=== PATIENT | male | born 1980 | race Caucasian/White ===

== ENCOUNTER 2016-06-12 21:43 | Emergency (ER) | payer MEDICARE, MEDICAID ==
[~2016-06-12] VITALS: Ht 182.9 cm; Wt 84.0 kg
[~2016-06-12 21:43] MED LIST: ARIP5TAB20 PO; BENZ0.5T3 PO; DIVA250T12 PO; FLUO20CA25 PO; IBUP200C PO; OLAN20TA16 PO; OXYC1TAB24 PO; PERP2TAB5 PO; RIZA10TA28 SL
[2016-06-12 22:06] VITALS: BP 130/73; PULSE 101; RESP 16; O2SAT 99
[2016-06-12 22:10] VITALS: BP 139/77; PULSE 111; RESP 18; O2SAT 99
--- NOTE | 2016-06-12 22:40 | ED.REPORT ---
HPI-Psychiatric Illness Date of Service Jun 12, 2016 ED Provider: Mehul Bernstein MD Patient is a 35 year old male with a history of schizophrenia with paranoid delusions, bipolar disorder, PTSD, and multiple previous psychiatric admissions with prior unintentional drug overdose who presents to the ED via [facility] after his called 911 reporting that the patient experiencing auditory hallucinations, paranoid delusions, and that he was threatening to commit suicide. His provided an affidavit, reporting that the patient has been hearing voices for the past few weeks, making it hard for him to focus. The patient has become increasingly anxious, with his medications recently adjusted by his provider. Mayra patient admitted to her that he wanted to make the voices stop. He stated that he took more of his [facility] than usual. The patient wanted to go to the ED to be admitted to the hospital. However, when she took out her cellphone to call a magnetic tester the patient believed that she received a text message from a man she was cheating on him with. The patient then became very agitated and his called [facility] for their safely. On arrival to the ED the patient denies being suicidal, delusional, or hearing voices. Patient states that he received a text message that his was cheating on him and he wanted to take a walk after they got into an argument. The patient was planning to go to the gym and work out until he settled down. The patient states that he is not suicidal or homicidal and that he plans to stay safe in the ED. The patient reports taking his medications as prescribed and that he sees his psychiatrist regularly. However his reports that the patient was suicidal and that he ran away from the house when she tried to take him to the ED. She therefore called [facility]. Patient was seen in the ED multiple times in the month of April in relation to an ongoing delusion that his is cheating on him, with similar circumstances as to how he presented to the ED mayra. He was ultimately not admitted for psychiatric services, as the patient always denied being suicidal and agreed to stay safe. Patient now admits that he was in a schizophrenic episode last time he was seen in the ED, but he is not currently in a schizophrenic episode. He states that his uses his schizophrenia against him. He plans to divorce his and requests that she is not given any information about his medical care. Patient states that he does not want to be in the ED but he agrees to cooperate with evaluation. Patient denies having any other medical complaints at this time. Mental Health Provider: Ana Cristina WEBB, [facility] Nursing Notes Stated Complaint: SUICIDAL STATEMENTS Chief Complaint: Psychiatric Complaint Nursing Notes Reviewed: Yes Allergies: Coded Allergies: No Known Allergies (Verified Allergy, Unknown, 11/17/15) Scheduled Aripiprazole (Aripiprazole) 5 Mg Tablet 10 MG PO MORNING Divalproex ER (Divalproex ER) 250 Mg Tab.er.24h 500 MG PO BID Fluoxetine (Fluoxetine) 20 Mg Capsule 20 MG PO QAM Olanzapine (Olanzapine) 20 Mg Tablet 20 MG PO HS Perphenazine (Perphenazine) 2 Mg Tablet 6 MG PO QAM oxyCODONE-Acetaminophen 5-325 mg (oxyCODONE-Acetaminophen 5-325 mg) 1 Each Tablet 1 TAB PO TID Scheduled PRN Benztropine Mesylate (Benztropine Mesylate) 0.5 Mg Tablet 0.5 MG PO BID PRN PRN tremors Ibuprofen (Ibuprofen) 200 Mg Capsule 400 MG PO QID PRN PRN For Pain Rizatriptan ODT (Rizatriptan) 10 Mg Tablet 10 MG SL DAILY PRN PRN For Headache General Time Seen by MD: 22:37 Chief Complaint Bizarre behavior, Suicidal ideation Hx Obtained From: Patient, Spouse, Other family..., Police Arrived By: Police, Walk-in Onset Occurred: 1 - 4 hours ago Symptom Duration: Since onset Recent Healthcare: No recent doctor visit, No recent hospitalization Similar Sx Previous: Yes Risk-Psychiatric Illness Suicide Risk Stratification Suicide Risk Factors - Adult: : Previous attempt: Prior psych admissionNo: Alcohol use, Substance abuse RF Statements: Risk factors reviewed Past Medical History Past Medical History Schizophrenia Bipolar disorder PTSD history of unintentional drug overdose Cluster migraine Chronic neck pain Reports: Hyperlipidemia Past Surgical History Cervical fusion Undescended testicle repair as a child Family History [place] (Mother in her 40s) Smoking History Current Every Day Smoker Social History Lives with and children Alcohol Use: Denies alcohol use Drug Use: Meth Other Social History: Good social support, , Local resident Occupation [employer] Status Independent Review of Systems Constitutional: Denies: Chills, Fever Psychiatric: Reports: Delusional, Denies: Hallucinations, auditory, Homicidal ideation, Suicidal ideation Complete sys rev & neg: except as marked. Physical Exam Physical Exam Notes: Initial Vital Signs Vital Signs (First) Date Time Temp Pulse Resp B/P Pulse Ox O2 Delivery O2 Flow Rate FiO2 06/12/16 22:06 37.2 101 16 130/73 99 Room Air Initial VS: Reviewed, Vital signs normal Head / Eyes: Atraumatic, Normocephalic, PERRL ENT: Conjunctiva normal, No scleral icterus Neck: Supple, Full range of motion Respiratory: Breath sounds normal, Clear to auscultation, No respiratory distress Cardiovascular: Regular rate & rhythm, Heart sounds normal Abdomen / GI: Soft, Non-tender Extremities: Vascular intact, Neuro intact Skin: Warm, Dry, No cyanosis General/Constitutional: Awake, Alert, No acute distress healthy and fit appearing Neurologic: Oriented X3, Speech NL, No motor deficits, No sensory deficits Psychiatric: Not suicidal (denies), Not homicidal (denies), No hallucinations ( denies) Abnormal Mood/Affect: Positive: Pressured speech denies all schizophrenic symptoms period. Interpretation & Diagnostics Interpretation & Diagnostics: Breathalyzer: 0.00 Urine Tox Screen: Positive for THC, all else negative Lab Results Interpretation Result Diagram: 06/12/16 2322 06/12/16 2322 Test 06/12/16 22:44 06/12/16 23:15 06/12/16 23:22 Hold Urine Received (Received) Hold Castle Top Tube Received (Received) White Blood Count 14.5th/mm3 (3.8-10.1) Red Blood Count 5.25mil/mm3 (4.40-5.80) Hemoglobin 15.6g/dL (13.8-17.2) Hematocrit 46.2% (41.0-50.0) Mean Corpuscular Volume 88.0fL (81-100) Mean Corpuscular Hemoglobin 29.7pg (27.0-35.0) Mean Corpuscular Hemoglobin Concent 33.8% (32.0-37.0) Red Cell Distribution Width 14.8% (12.3-15.4) Platelet Count 269bil/L (150-400) Neutrophils (%) (Auto) 64.1% (40-74) Lymphocytes (%) (Auto) 28.1% (14-46) Monocytes (%) (Auto) 6.9% (4-12) Eosinophils (%) (Auto) 0.2% (0-5) Basophils (%) (Auto) 0.4% (0-3) Sodium Level 139mEq/L (134-144) Potassium Level 3.6mEq/L (3.5-5.2) Chloride Level 100mEq/L (97-108) Carbon Dioxide Level 25mmol/L (18-29) Blood Urea Nitrogen 7mg/dL (6-20) Creatinine 0.88mg/dL (0.76-1.27) Estimat Glomerular Filtration Rate 106mL/min (>59) Glucose Level 114mg/dL (60-99) Calcium Level 8.9mg/dL (8.5-10.1) Total Bilirubin 0.3mg/dL (0.0-1.2) Aspartate Amino Transf (AST/SGOT) 16U/L (0-50) Alanine Aminotransferase (ALT/SGPT) 12U/L (0-44) Alkaline Phosphatase 37U/L (25-150) Total Protein 7.4g/dL (6.4-8.4) Albumin 4.3g/dL (3.4-5.0) Thyroid Stimulating Hormone (TSH) 2.560uIU/mL (0.450-4.500) Lab Results Interpretation: Elevated white blood count, likely stress related Re-Eval/Medical Decision Med Decision/Clinical Course 35-year-old male with a history of schizophrenia presents with an acute exacerbation. He was identified by his is having more hallucinations and more problems, and initially she states he agreed to come in voluntarily but then ran when the final arrangements were being made. She called the police and they brought him here. He has ongoing paranoid delusions about their relationship. He denies being suicidal or homicidal. He was evaluated by Andrew , ELBA., Please see his "briefing of intervention." He is being discharged home with his . Several follow-up arrangements are being made through [facility]. He will return if he has further problems. Source of Hx: Old records Re-Evaluation/Progress #1: Time of Eval: 23:49 Re-Evaluation/Progress Note: Informed the patient of the plan for DCR evaluation. Patient understands and agrees with this plan. All questions were addressed. Re-Evaluation/Progress #2: Time of Eval: 03:45 Patient Status: Condition improved Re-Evaluation/Progress Note: Patient understands and agrees with the plan to be discharged home. Discharge instructions and follow-up as arranged by DCR discussed. All questions were addressed. Return to the ED warnings given. Consultation #1: Call Returned at: 23:36 Note: Spoke with the [facility] for dispatch of the DCR. They agree to dispatch the DCR. Consultation #2: Call Returned at: 01:12 Grommet Machine Operator: Will see patient Note: DCR is present in the ED. He will evaluate the patient shortly. Consultation #3: Call Returned at: 03:39 Note: Spoke with the DCR, Andrew, who has evaluated the patient. He was given permission to speak to his , mental health provider, and set up follow-up with SHANNAN. He will have close outpatient follow-up. Patient would like to go home at that time and his is willing to take him home. Discussed with the patient when he needs to realize what is reality and what is due to his schizophrenia. Counseled Regarding: Diagnosis, Lab results, Need for follow-up, When/why to return to ED Discharge & Departure Impression: Primary Impression: Schizophrenia Schizophrenia type: paranoid schizophrenia Qualified Code: F20.0 - Paranoid schizophrenia )( Condition at Discharge: No danger to self, No danger to others, No suicidal ideation, No homicidal ideation Disposition: Home Discharge Condition All VS Reviewed: Yes Condition: Stable Patient Instructions: Schizophrenia (ED) Additional Instructions: Continue your present counseling efforts. Keep taking your medicines as prescribed. Referrals: Senthil Horton DO (PCP) Joaquina Attestation Portions of this note were transcribed by Cindy Manuel. I, Dr. Bernstein personally performed the history, physical exam and medical decision-making; I reviewed and confirmed the accuracy of the information in the transcribed note. Signed by: Joaquina Roldna, 06/12/2016 0522 copies to: Senthil Horton Howard L MD Jun 12, 2016 22:40 Cindy Manuel Jun 12, 2016 22:47
[2016-06-12 23:26] LABS: BASOPHILS % (AUTO) 0.4 % (0-3); EOSINOPHILS % (AUTO) 0.2 % (0-5); MONOCYTES % (AUTO) 6.9 % (4-12); Mean Corpuscular Hemoglobin 29.7 pg (27.0-35.0); NEUTROPHILS % (AUTO) 64.1 % (40-74); Platelet Count 269 bil/L (150-400)
[2016-06-13 04:00] VITALS: BP 133/72; PULSE 90; RESP 18; O2SAT 98
== END 2016-06-13 04:01 | disposition home or self-care (01) ==
LOC: SED 21:43
DX: F20.0 Paranoid schizophrenia (principal); F31.9 Bipolar disorder, unspecified; E78.5 Hyperlipidemia, unspecified; F17.200 Nicotine dependence, unspecified, uncomplicated

== ENCOUNTER 2016-11-06 20:48 | Emergency (ER) | payer MEDICARE ==
[2016-11-06 21:07] VITALS: BP 130/78; PULSE 118; RESP 20; O2SAT 98
--- NOTE | 2016-11-06 22:01 | ED.REPORT ---
HPI-Overdose/Alcohol Toxicity Date of Service Nov 06, 2016 ED Provider: Mehul Bernstein MD 36-year-old male past medical history of schizophrenia, drug and alcohol abuse, was brought to the ER today by police. The patient checked himself into the hotel and was in the process of drinking excessively when the arrived. She was concerned for his state at that point had not called 911. When the police arrived he was decided that he should be taken to the hospital for further evaluation. The patient states that he feels fine, that he is not a danger to himself or others and would like to be released home to go drink some more. In speaking with his she states that the patient has stated recently that he had a desire to end his own life, and he also has a documented previous attempt. She states that she does not believe that he is a danger to others this point. The patient denies having taken any other drugs besides alcohol although mentioned to his he might be positive for meth, she took this to mean that he most likely took some of her son's Adderall. The patient sees mental health counseling on a regular basis for schizophrenia. The states that he has been prescribed Depakote but has not been taking it appropriately. She also states that he sees a primary care provider who provides opiates on a regular basis which the patient "goes through like water" and is constantly running out early. Nursing Notes Stated Complaint: INTOXICATED Chief Complaint: Substance Abuse Nursing Notes Reviewed: Yes Allergies: Coded Allergies: No Known Allergies (Verified Allergy, Unknown, 11/17/15) Scheduled Aripiprazole (Aripiprazole) 5 Mg Tablet 10 MG PO MORNING Divalproex ER (Divalproex ER) 250 Mg Tab.er.24h 500 MG PO BID Fluoxetine (Fluoxetine) 20 Mg Capsule 20 MG PO QAM Olanzapine (Olanzapine) 20 Mg Tablet 20 MG PO HS Perphenazine (Perphenazine) 2 Mg Tablet 6 MG PO QAM oxyCODONE-Acetaminophen 5-325 mg (oxyCODONE-Acetaminophen 5-325 mg) 1 Each Tablet 1 TAB PO TID Scheduled PRN Benztropine Mesylate (Benztropine Mesylate) 0.5 Mg Tablet 0.5 MG PO BID PRN PRN tremors Ibuprofen (Ibuprofen) 200 Mg Capsule 400 MG PO QID PRN PRN For Pain Rizatriptan ODT (Rizatriptan) 10 Mg Tablet 10 MG SL DAILY PRN PRN For Headache General Time Seen by Provider: 21:15 Chief Complaint Intoxicated, alcohol Initial Psychiatric Assessment: Danger to self Onset Occurred: Just prior to arrival Severity: Current: No pain currently Severity: Maximum: No pain Recent Healthcare: No recent doctor visit Risk-Overdose/Alcohol Tox )( Suicide Risk Stratification : Alcohol use: Previous attempt: Prior psych admission: Substance abuse RF Statements: Risk factors reviewed Past Medical History Past Medical History Schizophrenia Bipolar disorder PTSD history of unintentional drug overdose Cluster migraine Chronic neck pain Reports: Hyperlipidemia Past Surgical History Cervical fusion Undescended testicle repair as a child Family History [place] (Mother in her 40s) Smoking History Current Every Day Smoker Social History Lives with and children Alcohol Use: Denies alcohol use Other Social History: Good social support, , Local resident Occupation [employer] Status Independent Review of Systems Complete sys rev & neg: except as marked. Physical Exam Physical Exam Notes: Initial exam conducted through a closed door as patient was uncooperative at that time Initial Vital Signs Vital Signs (First) Date Time Temp Pulse Resp B/P Pulse Ox O2 Delivery O2 Flow Rate FiO2 11/06/16 21:07 36.6 118 20 130/78 98 Room Air Initial VS: Reviewed, Vital signs abnormal Head / Eyes: Atraumatic, Normocephalic ENT: Mucous membranes moist, Conjunctiva normal, No scleral icterus Skin: No cyanosis Interpretation & Diagnostics Drug Screen / Level Interp Urine drug screen neg Re-Eval/Medical Decision Re-Evaluation/Progress #1: Time of Eval: 21:45 Patient Status: Condition worsened Re-Evaluation/Progress Note: Mario was evaluated with the resident at this time. He is belligerent and threatening. He states that he will let him leave or he will jason. His previous behavior and statements indicate suicidal content. He was placed in seclusion a few minutes ago and will remain there until he is behavior is less threatening and he is not a flight risk. He was offered medication to help him calm down and sleep but declined it. Re-Evaluation/Progress #2: Time of Eval: 23:10 Re-Evaluation/Progress Note: Patient continues to yell and hit and kick the door. He demands release and will not listen to reasoning. He cannot be released as he is intoxicated and has made suicidal statements. He demonstrated intent in that he rented a hotel room away from home. The decision was made to medicate him. Re-Evaluation/Progress #3: Time of Eval: 23:30 Patient Status: Condition worsened Re-Evaluation/Progress Note: The patient continues to escalate. He continues to yell and hit and kicked the peng and door. He will not listen to any discussion of the situation. Decision was made to medicate him based on this [id number] evaluation. Haldol 5 mg Benadryl 50 mg and Ativan 2 mg IM was ordered. [place] [employer] was called and is on scene with 3 officers, 2 of whom were involved in his original action. Additionally a code jeff was called and multiple staff members were present. Without incident the patient was placed in 4 point restraints and given the above medication. Proper paperwork was completed to document this action. Re-Evaluation/Progress #4: Time of Eval: 02:32 Re-Evaluation/Progress Note: [id number] evaluation at this time corresponding to a change in restraint orders. Mario remains sedated from his above medication. He is no longer fighting the restraints and no longer yelling and arguing. He was removed from the restraints. The the door wound remained closed at this time. Seclusion order was timed and signed. Discharge & Departure Shift Change Sign-Out Patient Care Transferred: Yes Discussed Complaint(s): Yes Laboratory Evaluation: Back, reviewed by me Response to Therapy: Improved Additonal Information: Transfer care to Dr. Estrada at 0600. Impression: Primary Impression: Alcohol abuse Additional Impression: Suicidal ideation Referrals: Senthil Horton DO (PCP) Care Transferred to: Transfer her care to Dr. Estrada 0600 Care Transferred at: 06:00 Attending Statement The patient was seen and examined together with Dr. Mane and I agree with the history, exam and plan as outlined in the note above. copies to: Senthil Horton Howard L MD Nov 06, 2016 22:01 Broderick Mane DO Nov 06, 2016 22:25 DEDRA GEORGES Nov 06, 2016 23:17
[2016-11-06] MEDS ORDERED: Haloperidol 5 mg/mL Inj IM ONE (23:15)
[2016-11-07 01:29] VITALS: BP 105/62; PULSE 109; RESP 20; O2SAT 96
[2016-11-07 05:49] VITALS: BP 98/61; PULSE 98; RESP 16; O2SAT 100
== END 2016-11-07 06:57 | disposition home or self-care (01) ==
LOC: SED 20:48
DX: F10.129 Alcohol abuse with intoxication, unspecified (principal); F43.0 Acute stress reaction; R45.851 Suicidal ideations; F20.9 Schizophrenia, unspecified; F31.9 Bipolar disorder, unspecified; F19.10 Other psychoactive substance abuse, uncomplicated; F43.10 Post-traumatic stress disorder, unspecified; E78.5 Hyperlipidemia, unspecified; F17.200 Nicotine dependence, unspecified, uncomplicated
CPT/HCPCS: 81002; 82075; 96372; 99285; J1200; J1630; J2060

== ENCOUNTER 2016-12-07 02:30 | Emergency (ER) | payer MEDICARE ==
[~2016-12-07] VITALS: Ht 185.4 cm; Wt 85.9 kg
[2016-12-07 02:38] VITALS: BP 136/76; PULSE 89; RESP 16; O2SAT 97
--- NOTE | 2016-12-07 02:46 | ED.REPORT ---
HPI-Rash / Abscess Date of Service Dec 07, 2016 ED Provider: Doc,Ed MD Patient is a 36-year-old male with history cluster headaches and schizophrenia who presents to the emergency department with a four-day history of left deltoid pain with 2 day history of erythema and one day history of right deltoid pain. Pain is achy without radiation. Additionally his significant other palpate a mass in the left lower lateral deltoid insertion. Patient himself does not feel this. He has a two-week history of red spots on his chest that have been stable. He has a stuffy nose. He has no fever, chills, nausea, vomiting, abdominal pain, joint pain, or edema. Nursing Notes Stated Complaint: LUMP IN BOTH ARMS Chief Complaint: Skin Rash/Abscess Nursing Notes Reviewed: Yes Allergies: Coded Allergies: No Known Allergies (Verified Allergy, Unknown, 11/17/15) Scheduled Aripiprazole (Aripiprazole) 5 Mg Tablet 10 MG PO MORNING Divalproex ER (Divalproex ER) 250 Mg Tab.er.24h 500 MG PO BID Fluoxetine (Fluoxetine) 20 Mg Capsule 20 MG PO QAM Olanzapine (Olanzapine) 20 Mg Tablet 20 MG PO HS Perphenazine (Perphenazine) 2 Mg Tablet 6 MG PO QAM oxyCODONE-Acetaminophen 5-325 mg (oxyCODONE-Acetaminophen 5-325 mg) 1 Each Tablet 1 TAB PO TID Scheduled PRN Benztropine Mesylate (Benztropine Mesylate) 0.5 Mg Tablet 0.5 MG PO BID PRN PRN tremors Ibuprofen (Ibuprofen) 200 Mg Capsule 400 MG PO QID PRN PRN For Pain Rizatriptan ODT (Rizatriptan) 10 Mg Tablet 10 MG SL DAILY PRN PRN For Headache General Time Seen by MD: 02:45 Chief Complaint Tender/swollen area Hx Obtained From: Patient, Spouse Arrived By: Walk-in Past Medical History Past Medical History Schizophrenia Bipolar disorder PTSD history of unintentional drug overdose Cluster migraine Chronic neck pain Reports: Hyperlipidemia Past Surgical History Cervical fusion Undescended testicle repair as a child Family History [place] (Mother in her 40s) Smoking History Current Every Day Smoker (former cigarette, current vape) Social History Lives with and children Alcohol Use: "Social" Drug Use: Denies drug use (denies IV/IM use), THC Other Social History: Good social support, , Local resident Occupation Ambulatory Status Independent Review of Systems A comprehensive review of systems was conducted with the patient and found to be negative except as above in the History of Present Illness. Physical Exam Initial Vital Signs Vital Signs (First) Date Time Temp Pulse Resp B/P Pulse Ox O2 Delivery O2 Flow Rate FiO2 12/07/16 02:38 36.8 89 16 136/76 97 Room Air Initial VS: Reviewed, Vital signs normal Head / Eyes: Atraumatic, Normocephalic, PERRL ENT: Mucous membranes moist, Conjunctiva normal, No scleral icterus Neck: Supple, Non-tender, Full range of motion Respiratory: Breath sounds normal, Clear to auscultation, No respiratory distress Cardiovascular: Regular rate & rhythm, Heart sounds normal, Intact distal pulses Abdomen / GI: Soft, Non-tender, No guarding, No rebound, No distention Back: No CVA tenderness Lymphatic: No lymphadenopathy Neurologic: Alert, Oriented, Nonfocal Psychiatric: Mood/affect normal, Behavior normal, Normal thought content General/Constitutional: Awake, Alert, No acute distress Color / Condition: Positive: Erythema localized (left deltoid, area outlined with black marker.) Rash / Lesion Notes: Approximately 1 cm mass lateral insertion of deltoid that is nonfluctuant, and non-discreet. Upper Extremity / MS: Atraumatic, Full range of motion, Neurologic intact, Vascular intact, No ligamentous injury, Tendon function NL Re-Eval/Medical Decision Med Decision/Clinical Course Patient is a 36-year-old male with history cluster headaches and schizophrenia who presents to the emergency department with a four-day history of left deltoid pain with 2 day history of erythema and one day history of right deltoid pain. Erythema does not appear to be cellulitic in nature. Area was outlined in case of extension. Warm compresses to the area recommended. Patient has no deficit in muscle strength, with mild pain upon movement in certain directions and with deep palpation to the area. This is most consistent with muscle strain, possibly worsened by lack of water intake, and elevated consumption of energy drinks up to 7 monster energy drinks per day. Discharge & Departure Impression: Primary Impression: Skin erythema Additional Impression: Muscle ache of extremity Disposition: Home Discharge Condition All VS Reviewed: Yes Condition: Stable Patient Instructions: Muscle Strain (ED) Additional Instructions: Thank you for entrusting us with your care today. It does not appear that you have abscess or infection at this time. Please schedule an appointment with your primary care provider within the next week. We recommend you increase your water intake and decrease your energy drink intake as this could be contributing to your fast heart rate. Please continue to monitor your arms. If redness of left arm rapidly extends outside of the outlined area or not becomes more prominent please return to emergency department. Use warm compresses 3 times daily on your left arm to help with the reddened skin. Referrals: Senthil Horton DO (PCP) Attending Statement The patient was seen and examined together with Dr. Cabrera, and I agree with the history, exam and plan as outlined in the note above. copies to: Senthil Horton Howard L MD Dec 07, 2016 02:46 Chanel Cabrera DO Dec 07, 2016 03:30
== END 2016-12-07 03:41 | disposition home or self-care (01) ==
LOC: SED 02:30
DX: L53.9 Erythematous condition, unspecified (principal); M79.1 Myalgia; E78.5 Hyperlipidemia, unspecified; F43.10 Post-traumatic stress disorder, unspecified; F17.200 Nicotine dependence, unspecified, uncomplicated